=== PATIENT | female | born 1970 | race Caucasian/White ===

== ENCOUNTER → 2019-12-21 | Outpatient (CLI) | payer BC ==
[2019-12-21 15:02] LABS: Basophils % (A) 1 %; Eosinophils # (A) 0.2 k/uL (0-0.7); Eosinophils % (A) 4 %; HCT 38.9 % (34.0-46.0); HGB 13.1 gm/dL (11.4-16.0); Lymphocytes # (A) 1.6 k/uL (1.0-4.8); Lymphocytes % (A) 34 %; MCH 30.6 pg (25.0-35.0); MCHC 33.6 g/dL (31.0-37.0); MCV 91.3 fL (80.0-100.0); Mean Platelet Volume 7.8; Monocytes # (A) 0.2 k/uL (0-1.0); Monocytes % (A) 5 %; Neutrophils # (A) 2.5 k/uL (1.3-7.7); Neutrophils % (A) 54 %; Platelet Count 260 k/uL (150-450); RBC 4.26 m/uL (3.80-5.40); RDW 11.5 % (11.5-15.5); WBC 4.6 k/uL (3.8-10.6)
[2019-12-21 15:58] LABS: Erythrocyte Sedimentation Rate 9 mm/hr (0-20)
[2019-12-21 18:37] LABS: C Reactive Protein <0.4 mg/dL (0.0-0.8); Rheumatoid Factor, Qnt 9 IU/mL (0-15); Uric Acid 4.3 mg/dL (2.9-7.7)
[2019-12-21 20:31] LABS: DNA Double-Stranded NEGATIVE (NEGATIVE)
[2019-12-22 11:03] LABS: HLA B27 NEGATIVE
== END | disposition home or self-care (01) ==
LOC: LABWHC1 14:17
PROVIDERS: ATTEND Orthopaedic Surgery
DX: M25.50 Pain in unspecified joint (principal)
CPT/HCPCS: 36415; 84550; 85025; 85652; 86038; 86140; 86225; 86431; 86812

== ENCOUNTER → 2022-08-16 | Outpatient (CLI) | payer OTHER ==
--- NOTE | 2022-08-17 05:16 | MR ---
EXAMINATION TYPE: MR shoulder LT wo con DATE OF EXAM: 08/16/2022 COMPARISON: None HISTORY: Left shoulder pain Multiplanar multiecho imaging of the left shoulder without contrast. There is narrowing of the glenohumeral joint space with spur formation. There is moderate shoulder magno int effusion. Subscapularis tendon is intact. Glenoid antoine appear intact. Biceps tendon is intact. The supraspinatus tendon is intact. No retraction. The infraspinatus tendon is intact. The AC joint i s intact. No subacromial impingement. IMPRESSION: Osteoarthritis in the glenohumeral joint with shoulder joint effusion. No evidence of rotator cuff te ar. Fluid consistent with synovitis. No fracture.
== END | disposition home or self-care (01) ==
LOC: RADMRIMAIN 06:59
PROVIDERS: ATTEND Orthopaedic Surgery
DX: M25.412 Effusion, left shoulder (principal)

== ENCOUNTER 2024-07-09 15:46 | Emergency (ER) | payer OTHER ==
[2024-07-09] MEDS: ACETAMINOPHEN TAB 325 MG TAB PO STA (16:18)
[2024-07-09 17:13] VITALS: RESP 18; TEMP 98.1
[2024-07-09] MEDS: CYCLOBENZAPRINE 10 MG TAB PO STA (17:46)
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
[2024-07-09] MEDS: ORPHENADRINE 30 MG/ML 2 ML VIAL IM STA (18:13)
[2024-07-09] MEDS: IPRATROPIUM-ALBUTEROL 3 ML NEB INHALATION STA (18:17)
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
[2024-07-09 18:48] VITALS: BP 119/68; PULSE 82
== END 2024-07-09 18:47 | disposition home or self-care (01) ==
LOC: EC 15:46
DX: S20.20XA Contusion of thorax, unspecified, initial encounter (principal); V89.2XXA Person injured in unspecified motor-vehicle accident, traffic, initial encounter; Y92.410 Unspecified street and highway as the place of occurrence of the external cause
CPT/HCPCS: 70450; 71046; 94640; 99284

== ENCOUNTER → 2025-04-03 | Outpatient (CLI) | payer OTHER ==
[2025-04-03 18:18] LABS: Basophils # (A) 0.01 X 10*3/uL (0.00-0.10); Basophils % (A) 0.4 %; Eosinophils # (A) 0.02 X 10*3/uL (0.04-0.35); Eosinophils % (A) 0.8 %; HCT 40.6 % (37.2-46.3); HGB 13.1 g/dL (12.0-15.0); Lymphocytes # (A) 0.94 X 10*3/uL (0.90-5.00); Lymphocytes % (A) 38.4 %; MCHC 32.3 g/dL (32.0-37.0); MCV 93.1 FL (80.0-97.0); Mean Platelet Volume 10.7 FL (9.5-12.2); Monocytes # (A) 0.25 X 10*3/uL (0.20-1.00); Monocytes % (A) 10.2 %; NRBC Per 100 WBC 0 X 10*3/uL (0.00-0.01); Neutrophils # (A) 1.22 X 10*3/uL (1.80-7.70); Neutrophils % (A) 49.8 %; Platelet Count 198 X 10*3/uL (140-440); RBC 4.36 X 10*6/uL (4.10-5.20); RDW 11.9 % (11.5-14.5); WBC 2.45 X 10*3/uL (4.50-10.00)
[2025-04-03 21:14] LABS: ALT 40 U/L (8-44); AST 25 U/L (13-35); Albumin 3.8 g/dL (3.8-4.9); Alkaline Phosphatase 60 U/L (41-126); Amylase 22 U/L (23-121); BUN/Creat Ratio 8.71 Ratio (12.00-20.00); Blood Urea Nitrogen 6.1 mg/dL (9.0-27.0); Carbon Dioxide 26.4 mmol/L (21.6-31.8); Chloride 104 mmol/L (96-109); Glucose 95 mg/dL (70-110); Lipase 12 U/L (14-63); Potassium 3.9 mmol/L (3.5-5.5); Sodium 139 mmol/L (135-145); Total Bilirubin 0.2 mg/dL (0.3-1.2); Total Protein 5.8 g/dL (6.2-8.2)
== END | disposition home or self-care (01) ==
LOC: LABWHC1 15:16
PROVIDERS: ATTEND Family Medicine
DX: R10.11 Right upper quadrant pain (principal)
CPT/HCPCS: 36415; 80053; 82150; 83690; 85025

== ENCOUNTER → 2025-04-26 | Outpatient (CLI) | payer OTHER ==
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
== END | disposition home or self-care (01) ==
LOC: RADUSWWP 06:58
PROVIDERS: ATTEND Family Medicine
DX: R10.11 Right upper quadrant pain (principal)
CPT/HCPCS: 76700; 76857

== ENCOUNTER → 2025-04-29 | Outpatient (CLI) | payer OTHER ==
--- NOTE | 2025-04-29 09:33 | NM ---
EXAMINATION TYPE: NM hepatobiliary w CCK DATE OF EXAM: 04/29/2025 COMPARISON: NONE INDICATION: Right upper quadrant pain TECHNIQUE: After the intravenous administration of 5.1 mCi Tc 99m Mebrofenin hepatobiliary scintigrap hy is performed. Images were obtained immediately post injection. FINDINGS: There is prompt uptake and excretion of radiotracer by the liver. Extrahepatic ducts are identified at 8 minutes. The gallbladder is visualized within 8 minutes. Small bowel activity is noted within 14 minutes. At one hour CCK was administered, patient was injected with 1.8 mcg of Kinevac, and gallbladder eject ion fraction is calculated at 98 %, which is markedly elevated. (Normal >35% and <80%.). IMPRESSION: 1. Biliary hyperkinesia. [facility], , 04/29/2025 9:31 AM
== END | disposition home or self-care (01) ==
LOC: RADNMMAIN 06:55
PROVIDERS: ATTEND Family Medicine
DX: K82.8 Other specified diseases of gallbladder (principal)
CPT/HCPCS: 78227; A9537; J2805